=== PATIENT | female | born 1950 | race Caucasian/White ===

== ENCOUNTER 2017-02-05 13:39 | Emergency (ER) | payer MEDICAID, OTHER ==
[2017-02-05] MEDS ORDERED: Ondansetron HCl/PF 4 MG/2 ML Vial ONE ×2 (13:56→17:19)
[2017-02-05] MEDS ORDERED: Sodium Chloride 0.9% 1,000 ML ONE ×3 (13:56→16:32)
[2017-02-05 14:30] LABS: ALT (SGPT) 24 U/L (8-55); AST (SGOT) 32 U/L (5-34); Albumin 4.3 g/dL (3.4-4.8); Alkaline Phosphatase 69 U/L (40-150); Anion Gap 20 mmol/L (10-20); BUN (Urea Nitrogen) 18 mg/dL (9.8-20.1); Bilirubin, Total 1.5 mg/dL (0.2-1.2); Blast 1 % (0-0); Calc. Creatinine Clearance 0 mL/min (70-130); Calcium 9.4 mg/dL (7.8-10.44); Carbon Dioxide 15 mmol/L (23-31); Chloride 110 mmol/L (98-107); Estimated GFR-MDRD 37; Globulin 4.2 g/dL (2.4-3.5); Glucose 112 mg/dL (80-115); Hemoglobin 14.7 g/dL (12.0-16.0); Hypersemented Neutrophil SLIGHT; Lipase 29 U/L (8-78); Lymphocytes 19 % (21-51); MDiff Complete? YES; Mean Corpuscular HGB CONC 34.4 g/dL (32.0-36.0); Mean Corpuscular Hemoglobin 30.6 pg (27.0-31.0); Mean Corpuscular Volume 89.1 fl (81.0-99.0); Mean Platelet Volume 12.6 fL (7.4-10.4); Monocytes 17 % (0-10); Neutrophil 63 % (42-75); PLT Morphology Comment Appears Adequate; Platelet Count 205 thou/uL (130-400); Potassium 3.5 mmol/L (3.5-5.1); Protein, Total 8.5 g/dL (6.0-8.3); RBC Distribution Width 12.9 % (11.5-14.5); Red Blood Cell (RBC) Count 4.81 mill/uL (4.20-5.40); Sodium 141 mmol/L (136-145); Vacuoles SLIGHT
[2017-02-05 17:04] LABS: Bilirubin Negative (Negative); Blood, Urine Small (Negative); Clarity SL HAZY (Clear); Glucose, Urine (Dipstick) Negative (Negative); Leukocyte Trace (Negative); Nitrite Negative (Negative); Protein, Urine (Dipstick) 100 mg/dL (Neg-Trace); Specific Gravity, Urine 1.025 (1.005-1.030); Urobilinogen 0.2 mg/dL (0.2-1.0)
[2017-02-05 17:15] LABS: RBC/HPF 0-3 HPF (0-3); Squamous Epithelial 0-3 HPF (0-3)
[2017-02-05 18:07] LABS: Anion Gap 14 mmol/L (10-20)
[2017-02-05 18:16] LABS: BUN (Urea Nitrogen) 17 mg/dL (9.8-20.1); Calc. Creatinine Clearance 0 mL/min (70-130); Calcium 7.7 mg/dL (7.8-10.44); Carbon Dioxide 17 mmol/L (23-31); Chloride 116 mmol/L (98-107); Estimated GFR-MDRD 46; Glucose 86 mg/dL (80-115); Potassium 3.5 mmol/L (3.5-5.1); Sodium 143 mmol/L (136-145)
== END 2017-02-05 18:39 | disposition home or self-care (01) ==
LOC: NAV ERS 13:39
DX: E86.0 Dehydration (principal); R11.2 Nausea with vomiting, unspecified; R19.7 Diarrhea, unspecified; K21.9 Gastro-esophageal reflux disease without esophagitis; E78.5 Hyperlipidemia, unspecified; I10 Essential (primary) hypertension; J44.9 Chronic obstructive pulmonary disease, unspecified; Z79.899 Other long term (current) drug therapy
CPT/HCPCS: 80053; 81003; 81015; 83690; 85025; 87086; 96361; 96374; 96376; J2405; J7050

== ENCOUNTER 2018-02-02 12:03 | Outpatient (CLI) | payer MEDICARE, OTHER ==
--- NOTE | 2018-02-02 12:53 | RAD ---
LEFT ANKLE THREE VIEWS: History: Left ankle pain. FINDINGS/IMPRESSION: No fracture, dislocation, or bony destruction is seen. The ankle mortise is maintained. There is a la rge plantar and small posterior calcaneal spur. POS: OFF
--- NOTE | 2018-02-02 12:56 | RAD ---
LEFT FOOT THREE VIEWS: History: Left foot pain and swelling. FINDINGS/IMPRESSION: No fracture, dislocation, or bony destruction is seen. Mild degenerative changes are noted. There is a large plantar and small posterior calcaneal spur. POS: OFF
== END 2018-02-02 12:04 | disposition home or self-care (01) ==
LOC: NAV RAD 12:03
PROVIDERS: ATTEND Family Medicine
DX: M25.473 Effusion, unspecified ankle (principal); M19.072 Primary osteoarthritis, left ankle and foot; M77.32 Calcaneal spur, left foot

== ENCOUNTER 2018-03-02 10:08 | Outpatient (CLI) | payer MEDICARE, OTHER ==
--- NOTE | 2018-03-02 12:26 | ULT ---
BILATERAL RENAL ULTRASOUND COMPLETE: Date: 03/02/18 HISTORY: Chronic kidney disease, Type III. FINDINGS: The right kidney measures 9.8 x 3.8 x 4.2 cm. The left kidney measures 10.0 x 4.3 x 3.8 cm. Small bi lateral renal cysts, up to approximately 1.0 cm. Increased echogenicity within the renal cortical reg ions bilaterally, evidence for nonspecific chronic renal disease. No renal hydronephrosis or perineph tex process. Urinary bladder appears unremarkable. No significant post-void residual. IMPRESSION: No renal hydronephrosis. Small bilateral renal cysts. Diffuse cortical increased echogenicity, eviden ce for nonspecific chronic renal disease. POS: [facility]
== END 2018-03-02 10:09 | disposition home or self-care (01) ==
LOC: NAV ULT 10:08
PROVIDERS: ATTEND Internal Medicine Nephrology
DX: I12.9 Hypertensive chronic kidney disease with stage 1 through stage 4 chronic kidney disease, or unspecified chronic kidney disease (principal); N18.3 Chronic kidney disease, stage 3 (moderate); N28.1 Cyst of kidney, acquired
CPT/HCPCS: 76770

== ENCOUNTER 2018-07-15 09:05 | Outpatient (CLI) | payer MEDICARE, OTHER ==
--- NOTE | 2018-07-15 09:20 | RAD ---
XR Shoulder Lt 2 View: 07/15/2018 9:11 AM CLINICAL INDICATION: Pain COMPARISON: None. FINDINGS: Fracture:No fracture. Arthropathy:Mild arthropathy. Incidental findings:Vascular calcification. Remote appearing mild left rib deformities. IMPRESSION: 1. No acute osseous abnormality.
--- NOTE | 2018-07-15 10:10 | RAD ---
RIGHT SHOULDER RADIOGRAPHS TWO VIEWS: Date: 07-15-18 Provided Clinical History: Pain without injury. FINDINGS: There is no evidence for fracture. Subacromial space appears preserved. The glenohumeral relationship is not well assessed without an axillary or scapular Y view. Remote healed right sided rib fractures are seen. The visualized right lung field appears clear. No lytic or blastic lesions are seen. Minim al acromioclavicular joint degenerative change. IMPRESSION: Minimal acromioclavicular joint degenerative change. Otherwise, unremarkable frontal right shoulder r adiographs. POS: C
== END 2018-07-15 09:06 | disposition home or self-care (01) ==
LOC: NAV RAD 09:05
PROVIDERS: ATTEND Internal Medicine Infectious Disease
DX: M25.511 Pain in right shoulder (principal); M25.512 Pain in left shoulder; M19.011 Primary osteoarthritis, right shoulder

== ENCOUNTER 2020-10-05 13:42 | Outpatient (CLI) | payer MEDICARE, OTHER | END 2020-10-05 13:43 | disposition home or self-care (01) | LOC: NAV RAD 13:42 | PROVIDERS: ATTEND Family Medicine | DX: M25.552 Pain in left hip (principal); S72.302A Unspecified fracture of shaft of left femur, initial encounter for closed fracture | CPT/HCPCS: 72100 ==

== ENCOUNTER 2021-12-20 12:06 | Outpatient (CLI) | payer MEDICARE, OTHER | END 2021-12-20 12:07 | disposition home or self-care (01) | LOC: NAV RAD 12:06 | PROVIDERS: ATTEND Family Medicine | DX: M47.22 Other spondylosis with radiculopathy, cervical region (principal); M25.512 Pain in left shoulder; S22.41XD Multiple fractures of ribs, right side, subsequent encounter for fracture with routine healing | CPT/HCPCS: 72040 ==

== ENCOUNTER 2022-08-26 13:53 | Outpatient (CLI) | payer OTHER | END 2022-08-26 13:54 | disposition home or self-care (01) | LOC: NAV RAD 13:53 | PROVIDERS: ATTEND Family Medicine | DX: R07.81 Pleurodynia (principal) ==

== ENCOUNTER 2023-08-14 09:24 | Outpatient (CLI) | payer OTHER | END 2023-08-14 09:25 | disposition home or self-care (01) | LOC: NAV RAD 09:24 | PROVIDERS: ATTEND Family Medicine | DX: M25.561 Pain in right knee (principal) ==

== ENCOUNTER 2025-02-10 16:15 | Emergency (ER) | payer OTHER, MEDICARE ==
[2025-02-10] MEDS ORDERED: Ondansetron PF 4 MG/2 ML Vial ONE (17:03)
[2025-02-10 17:31] LABS: White Blood Cell (WBC) Count 8.1 10x3/uL (4.8-10.8)
[2025-02-10 17:32] LABS: ALT (SGPT) 18 U/L (Less than 34); AST (SGOT) 30 U/L (11-34); Albumin 4.1 g/dL (3.1-4.5); Alkaline Phosphatase 71 U/L (40-110); Anion Gap 16 mmol/L (10-20); BUN (Urea Nitrogen) 23 mg/dL (9.8-20.1); Bilirubin, Total 0.5 mg/dL (0.3-1.2); Calc. Creatinine Clearance 0 mL/min (70-130); Calcium 9.4 mg/dL (7.8-10.44); Carbon Dioxide 17 mmol/L (23-31); Chloride 114 mmol/L (98-107); Globulin 3.5 g/dL (2.4-3.5); Glucose 96 mg/dL (83-110); Potassium 4.0 mmol/L (3.5-5.1); Sodium 143 mmol/L (136-145)
[2025-02-10 17:32] LABS: Hematocrit 37.6 % (36.0-47.0); Hemoglobin 13.5 g/dL (12.0-16.0); Mean Corpuscular Hemoglobin 31.6 pg (27.0-31.0); Mean Corpuscular Volume 88.0 fl (78.0-98.0); Platelet Count 253 10x3/uL (130-400); Red Blood Cell (RBC) Count 4.27 mill/uL (4.20-5.40)
[2025-02-10 17:38] LABS: Platelet Adequacy Comment Appears Adequate
== END 2025-02-10 19:00 | disposition home or self-care (01) ==
LOC: NAV ERS 16:15
DX: S22.43XA Multiple fractures of ribs, bilateral, initial encounter for closed fracture (principal); E78.00 Pure hypercholesterolemia, unspecified; K21.9 Gastro-esophageal reflux disease without esophagitis; I10 Essential (primary) hypertension; J44.9 Chronic obstructive pulmonary disease, unspecified; Z79.899 Other long term (current) drug therapy; X50.1XXA Overexertion from prolonged static or awkward postures, initial encounter
CPT/HCPCS: 71250; 80053; 85025; 85379; 96374; 96375; 96376; J2270; J2405